=== PATIENT | male | born 1950 | race Caucasian/White ===

== ENCOUNTER 2022-04-19 19:52 | Emergency (ER) | payer MEDICARE, MEDICAID ==
[~2022-04-19] VITALS: Ht 162.6 cm; Wt 87.5 kg
[~2022-04-19 19:52] MED LIST: LANTUS SUBQ; METF500S6 PO
[2022-04-19 20:15] VITALS: BP 151/69
--- NOTE | 2022-04-19 20:20 | NUR ---
PT AMBULATED TO BED 3
--- NOTE | 2022-04-19 20:45 | NUR ---
PT TAKEN TO CT
--- NOTE | 2022-04-19 20:45 | NUR ---
71 Y.O. M bib self for c/o fall @ 5pm. patient noted with abrasion and swelling on forehead. pt denies dizziness, blurred vision or LOC. States takes "natural blood thinners" does not know name. PT ALSO STATES HE HAS SOME L KNEE PAIN. HIS PAIN FOR BOTH HIS HEAD AND KNEE IS 5/10. NO N/V/D, SOB NOR CHEST PAIN. A&OX4, SKIN INTACT EVRYWHERE BUT HIS HEAD, VITALS WNL, BS 264, AND STEADY GAIT. PT IN A GOWN IN THE BED. medhx: diabetes, HTN NKA
--- NOTE | 2022-04-19 21:00 | NUR ---
PT BACK FROM CT
[2022-04-19] MEDS ORDERED: ACETAMINOPHEN EXTRA STRENGTH 500 MG TAB PO ONE (22:10)
[2022-04-19] MEDS ORDERED: BACITRACIN OINT 500 UNITS/GM PKT TP ONE (22:10)
[2022-04-19 22:40] LABS: BASOPHILS % (AUTO) 0.5 % (0.0-2.0); EOSINOPHILS # (AUTO) 0.2 K/uL (0-0.4); EOSINOPHILS % (AUTO) 3.6 % (0.0-4.0); HEMATOCRIT 38.9 % (36-52); LYMPHOCYTES % (AUTO) 32.2 % (20.5-51.1); MEAN CORPUSCULAR HEMOGLOBIN 30 pg (27-31); MEAN CORPUSCULAR HGB CONC 34 g/dL (33-37); MONOCYTES # (AUTO) 0.8 K/uL (0.8-1.0); MONOCYTES % (AUTO) 12.9 % (1.7-9.3); NEUTROPHILS # (AUTO) 3.2 K/uL (1.8-7.7); NEUTROPHILS % (AUTO) 50.8 % (42.2-75.2); PLATELET COUNT (AUTO) 197 K/uL (140-450); RED BLOOD CELL COUNT(AUTO) 4.32 MIL/uL (4.20-6.10); RED CELL DISTRIBUTION WIDTH 13.9 % (11.6-13.7); WHITE BLOOD COUNT (AUTO) 6.2 K/uL (4.8-10.8)
[2022-04-19 22:56] LABS: ANION GAP 9.5 (8-16); CARBON DIOXIDE 27.3 mmol/L (21-32); CHLORIDE 107 mmol/L (98-107); CREATININE 0.9 mg/dL (0.6-1.3); GLUCOSE 241 mg/dL (74-106); POTASSIUM 3.8 mmol/L (3.5-5.1); SODIUM SERUM 140 mmol/L (136-145); UREA NITROGEN, BLOOD 17 mg/dL (7-18)
[2022-04-19] MEDS ORDERED: BACI1PAC6 TP (23:38)
[2022-04-20 01:00] VITALS: BP 136/65
--- NOTE | 2022-04-20 01:00 | NUR ---
Patient discharged with v/s stable. Written and verbal after care instructions given and explained. Patient alert, oriented and verbalized understanding of instructions. Ambulatory with steady gait. All questions addressed prior to discharge. ID band removed. Patient advised to follow up with PMD. Rx of BACITRACIN OINTMENT given. Patient educated on indication of medication including possible reaction and side effects. Opportunity to ask questions provided and answered.
== END 2022-04-20 01:00 | disposition home or self-care (01) ==
LOC: MED 19:52
DX: S00.81XA Abrasion of other part of head, initial encounter (principal); R55 Syncope and collapse; E11.9 Type 2 diabetes mellitus without complications; I10 Essential (primary) hypertension; Z79.4 Long term (current) use of insulin; Z79.899 Other long term (current) drug therapy; W18.30XA Fall on same level, unspecified, initial encounter; Y93.89 Activity, other specified; Y92.89 Other specified places as the place of occurrence of the external cause; Y99.8 Other external cause status
CPT/HCPCS: 36415; 70450; 73562; 80048; 83735; 85025; 93005; 99285; Q0092